=== PATIENT | female | born 1955 | race Caucasian/White ===

== ENCOUNTER 2021-12-06 09:20 | Outpatient (CLI) | payer MEDICARE, MEDICAID, SELFPAY ==
[2021-12-06 13:41] LABS: Cholesterol* 199 mg/dL (90-199)
[2021-12-06 13:42] LABS: HDL Cholesterol* 78 mg/dL (>=50); LDL Cholesterol Calculated 108 mg/dL (<100); Triglycerides* 66 mg/dL (40-149)
== END 2021-12-06 09:21 | disposition home or self-care (01) ==
PROVIDERS: PCP Family Medicine; Visit Provider Family Medicine
DX: Z00.00 Encounter for general adult medical examination without abnormal findings (principal); E03.9 Hypothyroidism, unspecified; R07.9 Chest pain, unspecified; R25.2 Cramp and spasm; R06.09 Other forms of dyspnea
CPT/HCPCS: 80061; 84443; 84484

== ENCOUNTER 2021-12-20 12:28 | Outpatient (CLI) | payer MEDICARE, MEDICAID, SELFPAY ==
[2021-12-20 14:03] VITALS: BP 158/82; PULSE 93; RESP 18
--- NOTE | 2021-12-20 14:46 | PM.ST ---
Stress Test Note Date Time Seen by Provider: 13:20 Date Seen: 12/20/21 Date of test: 12/20/21 Providers Referring provider: Adriano Mesa Primary care provider: Adriano Mesa Stress test physician: Rachna Coronel Stress Test Note Stress test ordered: Stress Echo Indication for test: Dyspnea on exertion Stress test medicine: None Results discussion: Patient is resting EKG showing sinus rhythm 60 beats per minute. Resting blood pressure 134/74. Patient's cardiac stress test medical history is reviewed, she is consented on stress echo. Patient is exercises using a treadmill following standard Iván protocol. She had a calculated target heart rate of 132 and a maximal heart rate of 155. She exercised to 9 minutes 2nd, achieving 10.5 Mets. She stopped due to reaching her target heart rate and having dyspnea. She did not feel that her shortness of breath was out of proportion for her work load. She had a maximal exercise heart rate of 162 beats per minute which was 122% there were no arrhythmias, no significant ST segment changes. Note preliminary echo findings may be positive for inferior changes but we will need to await formal cardiology over read. Patient remained asymptomatic through the stress test in there were no EKG changes. Post stress test she was still feeling fine. Impression: Subjectively negative, objectively negative EKG portion of this stress echo. Follow up suggested: She will await the formal image reading and this will get sent to Dr. Roche. If she has not heard from Dr. Dao early next week she should contact his office or schedule a follow-up. In the meantime should she develop any significant chest pain, any sense of any heart irregularity or further concerns, she is advised to be seen in an emergency room.
== END 2021-12-20 12:29 | disposition home or self-care (01) ==
LOC: STRESS 12:30
PROVIDERS: PCP Family Medicine; Visit Provider Family Medicine
DX: R07.89 Other chest pain (principal); R06.09 Other forms of dyspnea
CPT/HCPCS: 93016; 93325; 93351

== ENCOUNTER 2021-12-26 13:19 | Outpatient (CLI) | payer MEDICARE, SELFPAY ==
--- NOTE | 2021-12-26 13:30 | CRLHL7_ITS ---
For Patients: As a result of the Century Cures Act, medical imaging exams and procedure reports are released immediately into your electronic medical record. You may view this report before your referring provider. If you have questions, please contact your health care provider. DXA BONE MINERAL DENSITY STUDY Current height (in): 60.5. Weight (lb): 125. Menopause age: 46. Ethnicity: . 1. Have you had a previous hip or vertebral fracture? No. 2. Have you had any fractures during your adult life which did not result from significant trauma (e.g., auto accident)? No. 3. Did either of your parents have a hip fracture? No. 4. Do you smoke? No. 5. Have you ever taken Glucocorticoids? No. 6. Do you have rheumatoid arthritis? No. 7. Do you have secondary osteoporosis? No. 8. Do you drink 3 or more alcoholic drinks per day? No. 9. Are you being treated for osteoporosis? No. 10. Have you ever taken any of the following medications: Actonel, Evista, Fosamax, Miacalcin, Reclast, Boniva, Forteo, HRT (i.e. estrogen/hormone therapy), Protelos, Prolia, Vitamin D, Calcium, other ??? please specify. ANSWER: Yes, vitamin D, calcium. 11. Do you have any of the following medical conditions: Anorexia or bulimia, asthma or emphysema, end stage renal disease, hyperparathyroidism, any seizure disorders, cancer, inflammatory bowel diseases, hysterectomy, other ??? please specify. ANSWER: Yes, hyperparathyroidism. 12. What was your maximum height (inches)? 61. 13. Do you perform weight bearing exercise regularly? No. 14. Do you regularly consume dairy products? Yes. 15. Do you drink caffeinated beverages? Yes. 16. At what age did your period start? 15. 17. Are you premenopausal? No. 18. How many full term pregnancies have you had? 3. 19. Have you ever missed your period for more than 6 months in a row (not including or menopause)? No. TECHNIQUE: Bone mineral density study was performed using the [employer]. FINDINGS: The results of the study expressed as bone mineral density (BMD) are as follows: Lumbar spine L2 to L4: BMD: 0.859 g/cm2. T-score: -2.0. Z-score: -0.1. Neck Left: BMD: 0.647 g/cm2. T-score: -1.8. Z-score: -0.3. Right: BMD: 0.631 g/cm2. T-score: -2.0. Z-score: -0.4. Total Left: BMD: 0.788 g/cm2. T-score: -1.3. Z-score: 0.0. Right: BMD: 0.818 g/cm2. T-score: -1.0. Z-score: 0.3. IMPRESSION: Osteopenia. *Comparison exams done prior to 11/2019 were performed on different unit, [employer]. COMPARISON: Compared with scan of 2020, the bone mineral density has decreased by 0.8 percent at the spine and increased by 1.8 percent at the hip. Compared with scan of 2016, the bone mineral density has decreased by 2.9 percent at the spine and decreased by 0.7 percent at the hip. FRAX 10-year Fracture Risk Major Osteoporotic Fracture: 5.9 percent Hip Fracture: 0.9 percent Reported Risk Factors: [place] () Neck BMD = 0.631, BMI = 24.0 Terry Dorman M.D. Diagnostic/Nuclear Medicine Radiologist [email or web address] WIA/Dictated by: Terry Dorman MD @ 12/27/2021 11:13:00 AM (Electronically Signed)
== END 2021-12-26 13:20 | disposition home or self-care (01) ==
PROVIDERS: PCP Family Medicine; Visit Provider Family Medicine
DX: M85.852 Other specified disorders of bone density and structure, left thigh (principal); M85.89 Other specified disorders of bone density and structure, multiple sites; R09.82 Postnasal drip; J30.9 Allergic rhinitis, unspecified
CPT/HCPCS: 77080

== ENCOUNTER 2022-11-04 11:15 | Outpatient (RCR) | payer MEDICARE, MEDICAID, SELFPAY ==
--- NOTE | 2022-11-01 12:48 | PT.OPE ---
PT [place] Outpatient Eval PT [facility] Outpatient Eval Start: 10/21/22 10:15 Freq: Status: Active Protocol: Document 10/21/22 10:16 HN (Rec: 10/21/22 11:50 HN [id number]) E-signed By Aminah Patel DPT Physical Therapy Outpatient Evaluation Insurance Information Recert Due Date 12/30/22 Insurance Name Medicare B Insurance Information/Comments Medicare Medical Diagnosis Strain of muscle and tendon of front wall of thorax, initial encounter S29. 011A. Treating Diagnosis S16. 1 for Strain of muscle, fascia and tendon at neck Strain of muscle and tendon of front wall of thorax, initial encounter S29. 011A. Referring MD Adriano Mesa MD Subjective Subjective Patient is a 67 year old female with pain in anterior and posterior chest with onset ~1 year ago after having COVID. Patient reports X rays are unremarkable and EKG was unremarkable. Patient reports occasional SOB but no related or correlated with chest pain . Discomfort in anterior and posterior L shoulder/chest. Does not interfere with many activities. Some pain with lying down on L side and reaching overhead Pain characteristics: describes pain as toothachey , reports pain is throbbing Aggravating factors: sleeping on L side, reaching up, takin a deep breath Easing Factors: rest, currently taking diclofenac Prior level of function: independent and unlimited with all activities Current limitations: sleeping on L side, reaching up, takin a deep breath Red flags: denies hx of cancer, recent infection, numbness/tingling, bowel/ bladder changes Imaging: report all imaging PMH: hypothyroidism, osteopenia, Social History: lives with daughter and three grandchildren, does a lot of driving, cooking, enjoys going to [employer], going for walk with dog Pain Comments Current: 0/10 Best: 0/10 Worst: 2/10 Current Work Status Retired Occupation Retired Preferred Name [employer] Precautions Treatment Precautions/Contraindications Shortness of breath, asthma Therapy Limitations/Systems Review Not Limited Objective Sensation/Reflexes Vitals at rest in sitting 60 bpm 119/75 97% Other/Pertinent Objective Shoulder range of motion: Patient cervical and shoulder range of motion are normal, with some increase sensitivity on L UT/LS with cervical rotation and sidebending Manual muscle testing: Shoulder flexion: 5/5 L , 5/5 R Shoulder extension: 5/5 L , 5 /5 R Shoulder abduction: 5/5 L , 5 /5 R Shoulder external rotation: 5/ 5 L , 5/5 R Shoulder internal rotation: 5/ 5 L , 5/5 R Elbow flexion: 5/5 L , 5/5 R Elbow extension: 5/5 L , 5/5 R Wrist extension: 5/5 L , 5/5 R Serratus: 4+/5 L , 5/5 R Lower trapezius: /5 L , /5 R Middle trapezius: /5 L , /5 R Pectoralis: 4+/5 L , 5/5 R Joint mobility: L shoulder joint mobility is normal. Palpation: increased tenderness along pec minor/ major, UT and levator scapulae . Assessment Assessment/Impression Patient is a 67 year old with complaints of left sided chest and shoulder blade pain with onset 5 months prior after bout of COVID. Patient demonstrates impaired increased tenderness along pec minor/major, upper trapezius and levator scapulae, and increased used of accessory breathing muscles consistent with chest wall muscle strain. Patient vitals are normal, patient's EKG and X-ray of chest wall/lungs are unremarkable. The impairments impact the patients ability to reach overhead, sleep restfully on left side and complete IADLs/ADLs and recreational activities without pain. Patient will benefit from skilled physical therapy to address the impairments and activity limitations listed above. Prognostic factors include no comorbidities and patient motivation. Primary Functional Limitations reach overhead, sleep restfully on left side and complete IADLs/ADLs and recreational activities without pain Plan of Care Rehabilitation Potential Good Physical Therapy Goals [facility] goals 6-10 weeks ( December 30, 2022) 1. Patient will tolerate sleeping on L side with no increase in symptoms in order to return to restful sleep. 2. Patient will tolerate reaching overhead without increase pain in order to return to full performance of ADLs and IADLs 3. Patient will be independent with home exercise program in order to self manage condition. 4. Patient will report pain is 1/10 or less worst in order to demonstrate decrease pain and disability related to symptoms. Coordination/Communication With Referral Source Treatment Plan/Direct Interventions Joint Mobilization,Manual Therapy,Neuromuscular Re-ed, Self-Care/Home Management, Therapeutic Activities, Therapeutic Exercises Frequency/Duration 1x/week for 6-10 weeks Patient Will Be Discharged From Therapy Completion of LTG(s),Skills Plateau,Independent w/HEP Evaluation Billing Untimed Code Treatment Minutes 15 Complexity Low Certification Information Initial Certification Date 10/21/22 Ending Certification Date 12/30/22 Provider Signature Shows Agreement With POC & Medical Necessity Physician Signature & Date Requested Please Sign/Date Here Physician Comment/Change : Physician NPI Number #
== END 2023-01-06 13:21 | disposition home or self-care (01) ==
PROVIDERS: PCP Family Medicine; Visit Provider Family Medicine
DX: S29.011D Strain of muscle and tendon of front wall of thorax, subsequent encounter (principal); Z51.89 Encounter for other specified aftercare
CPT/HCPCS: 97110; 97140; 97161

== ENCOUNTER 2023-04-08 09:24 | Outpatient (CLI) | payer MEDICARE, MEDICAID, SELFPAY | END 2023-04-08 09:25 | disposition home or self-care (01) | LOC: NFLDREF 04-09 12:26 | PROVIDERS: PCP Family Medicine; Referring Provider Family Medicine; Visit Provider Family Medicine | DX: Z00.00 Encounter for general adult medical examination without abnormal findings (principal); E03.9 Hypothyroidism, unspecified; I49.9 Cardiac arrhythmia, unspecified; E55.9 Vitamin D deficiency, unspecified; M85.80 Other specified disorders of bone density and structure, unspecified site | CPT/HCPCS: 80048; 80061; 82306; 84443 ==

== ENCOUNTER 2023-08-14 12:41 | Outpatient (CLI) | payer MEDICARE, OTHER, SELFPAY ==
--- NOTE | 2023-08-14 13:00 | XR_ITS ---
Patient: GENNY HENRY Facility:?[facility] Patient ID:?[id number] Site Patient ID:?[id number]. Site :?[id number] Study:?DEXA-Bone Density -08/14/2023 2:43:08 PM Ordering Physician:AMELIE SWANSON Final Report: DXA BONE MINERAL DENSITY STUDY Reason for exam: Osteopenia. Current height (in): 60.5. Weight (lb): 134. Menopause age: 46. Ethnicity: White. 1. Have you had a previous hip or vertebral fracture? No. 2. Have you had any fractures during your adult life which did not result from significant trauma (e.g., auto accident)? No. 3. Did either of your parents have a hip fracture? No. 4. Do you smoke? No. 5. Have you ever taken Glucocorticoids? No. 6. Do you have rheumatoid arthritis? No. 7. Do you have secondary osteoporosis? No. 8. Do you drink 3 or more alcoholic drinks per day? No. 9. Are you being treated for osteoporosis? No. 10. Have you ever taken any of the following medications: Actonel, Evista, Fosamax, Miacalcin, Reclast, Boniva, Forteo, HRT (i.e., estrogen/hormone therapy), Protelos, Prolia, Vitamin D, Calcium, other ? please specify. ANSWER: Yes, vitamin D and calcium. 11. Do you have any of the following medical conditions: Anorexia or bulimia, asthma or emphysema, end stage renal disease, hyperparathyroidism, any seizure disorders, cancer, inflammatory bowel diseases, hysterectomy, other ? please specify. ANSWER: Yes, hyperparathyroidism. 12. What was your maximum height (inches)? 61. 13. Do you perform weight bearing exercise regularly? No. 14. Do you regularly consume dairy products? Yes. 15. Do you drink caffeinated beverages? Yes. If female: 16. At what age did your period start? 15. 17. Are you premenopausal? No. 18. How many full-term pregnancies have you had? 3. 19. Have you ever missed your period for more than 6 months in a row (not including or menopause)? No. TECHNIQUE: Bone mineral density study was performed using the [employer]. FINDINGS: The results of the study expressed as bone mineral density (BMD) are as follows: Lumbar spine L2 to L4: BMD: 0.799 g/cm2. T-score: -2.5. Z-score: -0.5 Neck Left: BMD: 0.598 g/cm2. T-score: -2.3. Z-score: -0.6 Right: BMD: 0.624 g/cm2. T-score: -2.0. Z-score: -0.4 Total Left: BMD: 0.775 g/cm2. T-score: -1.4. Z-score: -0.0 Right: BMD: 0.866 g/cm2. T-score: -0.6. Z-score: 0.7 IMPRESSION: Osteoporosis. *Comparison exams done prior to 11/2019 were performed on different unit, [employer]. COMPARISON: Compared with scan of 12/26/2021, the bone mineral density has decreased by 6.9 percent at the spine and increased by 2.2 percent at the hip. Compared with scan of 01/18/2021, the bone mineral density has decreased by 0.8 percent at the spine and increased by 1.8 percent at the hip. Vivian Gardner M.D. Body/Diagnostic Radiologist [email or web address] [email or web address]/[email or web address] D& Transcribed: 11:45 a.ramesh patterson/Dictated by: Vivian Gardner MD @ 08/15/2023 2:59:00 AM Signed by:Bozena Gardner MD @08/15/2023 8:17:33 PM (Electronic Signature)
== END 2023-08-14 12:42 | disposition home or self-care (01) ==
LOC: RAD 12:44
PROVIDERS: PCP Family Medicine; Visit Provider Family Medicine
DX: Z78.0 Asymptomatic menopausal state (principal); M81.0 Age-related osteoporosis without current pathological fracture; M85.80 Other specified disorders of bone density and structure, unspecified site
CPT/HCPCS: 77080

== ENCOUNTER 2024-01-15 22:10 | Outpatient (REF) | payer MEDICARE, MEDICAID, SELFPAY ==
[2024-01-15 22:35] LABS: Albumin* 4.1 g/dL (3.3-5.0)
[2024-01-15 22:38] LABS: Alkaline Phosphatase* 51 U/L (40-150); Aspartate Amino Transferase* 30 U/L (12-35); Bilirubin Direct* 0.3 mg/dL (0.0-0.5); Bilirubin Total* 0.5 mg/dL (0.1-1.5); Total Protein* 6.8 g/dL (6.0-8.3)
[2024-01-15 22:39] LABS: Alanine Aminotransferase* 21 U/L (4-35)
== END 2024-01-15 22:11 | disposition home or self-care (01) ==
LOC: NPINS 22:10
PROVIDERS: PCP Family Medicine; Visit Provider Podiatrist
DX: Z79.899 Other long term (current) drug therapy (principal)
CPT/HCPCS: 80076

== ENCOUNTER 2024-03-19 11:18 | Outpatient (CLI) | payer MEDICARE, MEDICAID, SELFPAY ==
--- NOTE | 2024-03-19 11:30 | CRLHL7_ITS ---
For Patients: As a result of the Century Cures Act, medical imaging exams and procedure reports are released immediately into your electronic medical record. You may view this report before your referring provider. If you have questions, please contact your health care provider. BILATERAL SCREENING MAMMOGRAM WITH COMPUTER-AIDED DETECTION AND TOMOSYNTHESIS TECHNIQUE: CC and MLO views were obtained. These mammographic images have been obtained using full-field digital technique. These mammographic images were interpreted with the benefit of computer-aided detection. Breast Tomosynthesis was used in this interpretation. COMPARISON FILM: 10/17/22, 10/12/21, 07/17/20. FINDINGS: The breasts are heterogeneously dense, which may obscure small masses. IMPRESSION: There is no radiographic evidence for malignancy. ASSESSMENT: BI-RADS Category 1: Negative RECOMMENDATION: Routine screening mammogram in 1 year. A lay language report of this examination will be provided to the patient. Bobby Castillo M.D. Diagnostic Radiologist [email or web address] SP/Dictated by: Bobby Castillo MD @ 03/25/2024 11:22:00 AM (Electronically Signed)
== END 2024-03-19 11:19 | disposition home or self-care (01) ==
LOC: MAMMO 11:18
PROVIDERS: PCP Family Medicine; Visit Provider Family Medicine
DX: Z12.31 Encounter for screening mammogram for malignant neoplasm of breast (principal); R92.333 Mammographic heterogeneous density, bilateral breasts
CPT/HCPCS: 77063; 77067

== ENCOUNTER 2024-04-08 22:09 | Outpatient (REF) | payer MEDICARE, MEDICAID, SELFPAY ==
[2024-04-08 22:27] LABS: Albumin* 4.3 g/dL (3.3-5.0)
[2024-04-08 22:30] LABS: Alanine Aminotransferase* 21 U/L (4-35); Alkaline Phosphatase* 46 U/L (40-150); Aspartate Amino Transferase* 27 U/L (12-35); Bilirubin Direct* 0.1 mg/dL (0.0-0.5); Bilirubin Total* 0.1 mg/dL (0.1-1.5); Total Protein* 6.9 g/dL (6.0-8.3)
== END 2024-04-08 22:10 | disposition home or self-care (01) ==
LOC: NPINS 22:09
PROVIDERS: PCP Family Medicine; Visit Provider Podiatrist
DX: Z79.899 Other long term (current) drug therapy (principal)
CPT/HCPCS: 80076

== ENCOUNTER 2024-04-22 08:28 | Outpatient (CLI) | payer MEDICARE, MEDICAID, SELFPAY | END 2024-04-22 08:29 | disposition home or self-care (01) | LOC: NFLDREF 04-25 08:33 | PROVIDERS: PCP Family Medicine; Referring Provider Family Medicine; Visit Provider Family Medicine | DX: E78.00 Pure hypercholesterolemia, unspecified (principal); E55.9 Vitamin D deficiency, unspecified; E03.9 Hypothyroidism, unspecified; M81.0 Age-related osteoporosis without current pathological fracture | CPT/HCPCS: 80053; 80061; 82306; 84439; 84443 ==

== ENCOUNTER 2024-08-02 17:00 | Outpatient (CLI) | payer MEDICARE, MEDICAID, SELFPAY | END 2024-08-02 17:01 | disposition home or self-care (01) | LOC: NFLDREF 08-03 21:43 | PROVIDERS: PCP Family Medicine; Referring Provider Family Medicine; Visit Provider Family Medicine | DX: R53.83 Other fatigue (principal); Z13.29 Encounter for screening for other suspected endocrine disorder | CPT/HCPCS: 84443 ==

== ENCOUNTER 2024-08-03 11:15 | Outpatient (RCR) | payer MEDICARE, MEDICAID, SELFPAY ==
--- NOTE | 2024-07-20 12:38 | PT.OPE ---
PT [place] Outpatient Eval PT [facility] Outpatient Eval Start: 07/20/24 09:41 Freq: Status: Active Protocol: Document 07/20/24 09:41 EN (Rec: 07/20/24 11:06 ENM [id number]) E-signed By Chery Arrington, DPT Physical Therapy Outpatient Evaluation Insurance Information Recert Due Date 10/18/24 Insurance Name Medicare B Medical Diagnosis impingement syndrome of unspecified shoulder Treating Diagnosis right shoulder pain, decreased shoulder ROM, muscle weakness , impaired ADLs Imaging Report Information Xray from 2022 Mild degenerative change of the AC joint with slight narrowing and spurring. Slight narrowing of the glenohumeral joint. No fracture or dislocation. Referring MD Khan Subjective Preferred Name Rashmi Souza Patient presents to PT for complaint of right shoulder pain that started last week. Has had this pain in the past. Started on Friday and then worsened by Friday. Went to the clinic on Friday had an injection of Novocain and cortisone. Has been icing and taking ibuprofen. At rest she is not in pain but when she uses it will have symptoms. She cannot lift the arm up as much as she would like but it is better than this weekend. She doesn't remember a specific injury. It is hard to wash her hair. Stays busy with driving her grandkids. Lives with her daughter. When it started: a week ago Describes it as: aching Timing: at first was worse at night Location: all around the shoulder joint Irritability: mod-severe Severity: mod-severe Pain Comments at its best: none at its worse: 10 easing: icing, medication aggravating: squeezing, reaching, lifting, getting dressed, washing hair Current Work Status Retired Objective Other/Pertinent Objective Shoulder AROM: Shoulder flexion: L 156 R 80 ( passive to 90 degs) Abduction: L 171 R 30 IR: L T7 R mid glute ER: L T3 R unable to perform ( passive L 53 R 20) *all limited by pain Cervical AROM: Flexion: WNL Ext: WNL SB: WNL Rot: WNL Strength: Shoulder flexion: L 4/5 R deferred due to pain Shoulder abduction: L 4+/5 R deferred due to pain Shoulder IR0: L 4+/5 R deferred due to pain Shoulder ER0: L 4/5 R deferred due to pain Palpation/joint mobility: Posterior glide of GHJ: normal B + for pain with palpation of infraspinatus, teres, biceps tendon Other: Patient resting in sitting area bracing R UE Functional Test Performed & Score SPADI: 40/50 pain disability 70/80 110/130 Assessment Assessment/Impression Patient is a 69 year old female presenting with one week history of signficant right shoulder pain. Symptoms started without an injury and worsened until the weekend when they received an injection at urgent care. Was diagnosed with bursitis and tendonitis of the shoulder. Since then pain levels have improved some but their ROM and ability to perform functional activities is still significantly limited. Upon assessment patients concordant pains brought on with all active shoulder movements and palpation of posterior rotator cuff. ROM was significantly limited to less than 80 degs of active elevation, passively able to tolerate 90 degs. Joint play was within normal limits bilaterally. Special testing and MMT was deferred due to degree of pain. They respond positively to soft tissue work of shoulder with light joint mobilizations for pain. Symptoms are consistent with subacromial pain syndrome vs calcific tendon due to severity of pain. Rashmi would greatly benefit from skilled PT to address impairments stated above for improved ability to perform self cares/ADLs and return to PLOF. Primary Functional Limitations reaching, lifting, doing her hair, getting dressed Plan of Care Rehabilitation Potential Fair Rehabilitation Potential Comments fair-good due to severity of pain Physical Therapy Goals In 8-10 visits: 1. Patient will be IND with HEP and self management of symptoms 2. Patient will display pain free shoulder ROM to 110 or greater in order to perform all self cares and ADLS without significant discomfort or difficulty 3. Patient will be able to comfortably lay at night for improved sleep hygiene 4. Patient will be able to perform household duties with 4/10 or less shoulder pain to progress toward PLOF 5. Patient will improve SPADI from 110 to 97 (MDC 13) to demonstrate improvements in QOL Coordination/Communication With Referral Source Treatment Plan/Direct Interventions Dry Needling,Electrical Stimulation,Heat,Ice/Cold/ Vasopneumatic,Joint Mobilization,Manual Therapy, Neuromuscular Re-ed,Self-Care/ Home Management,Therapeutic Activities,Therapeutic Exercises Frequency/Duration 1-2x a week for 3 weeks, 1x a week 4-5 visits Patient Will Be Discharged From Therapy Completion of LTG(s), Independent w/HEP Evaluation Billing Untimed Code Treatment Minutes 27 Complexity Moderate Certification Information Initial Certification Date 07/20/24 Ending Certification Date 10/18/24 Provider Signature Required Yes Provider Signature Shows Agreement With POC & Medical Necessity Physician NPI Number Write NPI# Here Physician Comment/Change : Physician Signature & Date Requested Please Sign/Date Here
== END 2024-12-01 23:59 | disposition home or self-care (01) ==
PROVIDERS: PCP Family Medicine; Visit Provider Family Medicine
DX: M75.40 Impingement syndrome of unspecified shoulder (principal); M54.9 Dorsalgia, unspecified; Z51.89 Encounter for other specified aftercare
CPT/HCPCS: 97110; 97140; 97162

== ENCOUNTER 2025-03-30 10:02 | Outpatient (CLI) | payer MEDICARE, MEDICAID, SELFPAY ==
--- NOTE | 2025-03-30 10:20 | CRLHL7_ITS ---
For Patients: As a result of the Cures Act, medical imaging exams and procedure reports are released immediately into your electronic medical record. You may view this report before your referring provider. If you have questions, please contact your health care provider. INDICATION: BILATERAL SCREENING MAMMOGRAM, ASYMPOTMATIC 70 Y/O FEMALE COMPARISON: 03/19/2024, 10/17/2022, 10/12/2021 TECHNIQUE: Digital mammogram in CC and MLO projections including computer-aided detection (CAD) and tomosynthesis. BREAST COMPOSITION: The breasts are heterogeneously dense, which may obscure small masses. FINDINGS: No suspicious findings. ASSESSMENT: BI-RADS 2 Benign RECOMMENDATION: Annual screening mammogram. A lay language report of this examination will be provided to the patient. Dictated by: Bobby Castillo MD @ 03/30/2025 11:21:23 (Electronically Signed)
== END 2025-03-30 10:03 | disposition home or self-care (01) ==
LOC: MAMMO 10:02
PROVIDERS: PCP Family Medicine; Visit Provider Family Medicine
DX: Z12.31 Encounter for screening mammogram for malignant neoplasm of breast (principal); R92.333 Mammographic heterogeneous density, bilateral breasts
CPT/HCPCS: 77063; 77067